=== PATIENT | female | born 1955 | race Two or more races ===

== ENCOUNTER → 2021-07-11 | Outpatient (CLI) | payer MEDICARE, MEDICAID ==
[~2021-07-11] VITALS: Ht 162.6 cm; Wt 142.0 kg
[~2021-07-11] MED LIST: ADENOSINE 119 MG in GIVE UN-DILUTED 0 ML IV ONE
[2021-07-11 10:51] VITALS: BP 134/82
== END | disposition home or self-care (01) ==
LOC: XY 09:22
PROVIDERS: ATTEND Internal Medicine
DX: I11.0 Hypertensive heart disease with heart failure (principal); I50.42 Chronic combined systolic (congestive) and diastolic (congestive) heart failure; I25.10 Atherosclerotic heart disease of native coronary artery without angina pectoris; E11.40 Type 2 diabetes mellitus with diabetic neuropathy, unspecified; R60.0 Localized edema; E78.5 Hyperlipidemia, unspecified; Z79.4 Long term (current) use of insulin; Z87.09 Personal history of other diseases of the respiratory system; Z95.5 Presence of coronary angioplasty implant and graft
CPT/HCPCS: 78452; 93017; A9500; J0153

== ENCOUNTER 2021-10-14 13:28 | Inpatient (IN) | payer MEDICARE, MEDICAID ==
[~2021-10-14] VITALS: Ht 162.6 cm; Wt 146.1 kg
[2021-10-14] MEDS ORDERED: NITROGLYCERIN 0.4 MG SL TAB SL ONE (13:30)
[2021-10-14 14:30] LABS: White Blood Cell 12.1 10^3/uL (4.4-10.8)
[2021-10-14 14:32] LABS: Hematocrit 35.1 % (36.0-46.0); Hemoglobin 11.8 g/dL (12.2-16.2); Mean Corpuscular Hemoglobin 27.4 pg (28.0-32.0); Mean Corpuscular Hgb Conc. 33.7 g/dL (32.0-36.0); Mean Corpuscular Volume 81.3 fL (80.0-100.0); Red Blood Cells 4.32 10^6/uL (4.0-5.20)
[2021-10-14 14:42] LABS: Basophils % (manual) 0 (0.0-2.0); Blast Cells 0; Promyelocytes % 0; Reactive Lymphocytes 0
[2021-10-14 14:55] LABS: Albumin 2.8 g/dL (3.4-5.0); Calcium 8.9 mg/dL (8.5-10.1); Potassium 4.1 mmol/L (3.5-5.1)
[2021-10-14 14:57] LABS: Bilirubin, Total 0.2 mg/dL (0.2-1.0); Total Protein 6.9 g/dL (6.4-8.2)
[2021-10-14 15:07] LABS: Band Neutrophils % (manual) 13; Eosinophils % (manual) 2 (0-7); Lymphocytes % (manual) 22 (10.0-50.0); Metamyelocytes % 1; Monocytes % (manual) 5 (0-12); Myelocytes % 1
[2021-10-14 15:27] LABS: Urine Amorphous Crystal FEW /hpf (None Seen); Urine Bacteria NONE SEEN /hpf (None Seen); Urine Blood Negative /uL (Negative); Urine Specific Gravity 1.014 (1.001-1.035); Urine WBC 1 /hpf (0 - 5)
[2021-10-14] MEDS ORDERED: NITROGLYCERIN 0.4 MG SL TAB SL PRN (18:30)
[2021-10-14] MEDS ORDERED: DEXTROSE (50%) 50ML SYRG IV PRN (18:30)
[2021-10-14] MEDS ORDERED: hydrALAZINE HCL 20 MG/ML VL IV PRN (18:30)
[2021-10-14] MEDS ORDERED: MORPHINE SULFATE INJ 2 MG/ml SYRG IV PRN ×2 (18:30)
[2021-10-14] MEDS ORDERED: ALBUTEROL SULF 2.5 MG/0.5ML(0.5%) NEB SOLN NEB PRN (18:45)
[2021-10-14 18:59] LABS: Cholesterol 118 mg/dL (< 200)
[2021-10-14 19:01] LABS: HDL Cholesterol 41 mg/dL (40-59); LDL Cholesterol 67 mg/dL (< 100); Triglycerides 100 mg/dL (< 150)
[2021-10-14 19:59] VITALS: BP 168/76
[2021-10-14] MEDS ORDERED: LABETALOL HCL 5 MG/ML 4ML SYRINGE IV ONE (21:45)
[2021-10-14] MEDS: ACCU-CHEK COMFORT CURVE STRIP VI SCH (21:58)
[2021-10-14] MEDS ORDERED: InsuLIN REG 1unit/0.01ml Soln (100units/ml) SC SCH (22:00)
[2021-10-14 23:12] VITALS: BP 155/59
[2021-10-15] VITALS (11 sets, daily range): BP systolic 132–183; BP diastolic 56–83
[2021-10-15] MEDS: ACCU-CHEK COMFORT CURVE STRIP VI SCH ×2 (06:24→11:17)
[2021-10-15] MEDS: InsuLIN REG 1unit/0.01ml Soln (100units/ml) SC SCH ×2 (06:25→11:17)
[2021-10-15 08:07] LABS: Mean Corpuscular Volume 80.7 fL (80.0-100.0); White Blood Cell 11.7 10^3/uL (4.4-10.8)
[2021-10-15 08:11] LABS: Hematocrit 35.9 % (36.0-46.0); Hemoglobin 11.8 g/dL (12.2-16.2); Mean Corpuscular Hemoglobin 26.6 pg (28.0-32.0); Red Blood Cells 4.45 10^6/uL (4.0-5.20); Red Cell Distribution Width 14.9 % (11.8-14.3)
[2021-10-15 08:19] LABS: Basophils % (manual) 0 (0.0-2.0); Blast Cells 0; Metamyelocytes % 0; Myelocytes % 0; Promyelocytes % 0; Reactive Lymphocytes 0
[2021-10-15 08:31] LABS: Albumin 2.9 g/dL (3.4-5.0); Calcium 8.9 mg/dL (8.5-10.1); Potassium 4.1 mmol/L (3.5-5.1)
[2021-10-15 08:35] LABS: BUN/Creatinine Ratio 19.8; Bilirubin, Total 0.4 mg/dL (0.2-1.0); Total Protein 6.9 g/dL (6.4-8.2)
[2021-10-15] MEDS ORDERED: METOCLOPRAMIDE HCL 5MG/ml INJ 2ml VIAL IV ONE (08:45)
[2021-10-15 09:45] LABS: INR 1.05 (0.9-1.15); Partial Thromboplastin Time 24.2 sec (23.6-33.0)
[2021-10-15] MEDS ORDERED: ENOXAPARIN SOD 40 MG/0.4 ML SYRINGE SC SCH (10:00)
[2021-10-15] MEDS ORDERED: FUROSEMIDE 100 MG/10ML VIAL IV SCH (10:00)
[2021-10-15] MEDS ORDERED: IODIXANOL 320MG/ML 100ML BTL IV ONE (11:17)
[2021-10-15] MEDS ORDERED: LIDOCAINE 2%HCL (LOCAL ANESTH.) INJ 10ml MDV ONE (11:17)
[2021-10-15] MEDS ORDERED: HEPARIN SODIUM (PORCINE) 5000 UNITS/ML 1ML VIAL ONE (11:29)
[2021-10-15] MEDS ORDERED: ANGIOMAX 250 MG VIAL IV ONE (11:29)
[2021-10-15] MEDS ORDERED: SODIUM CHL 0.9% 0 ML ONE (11:30)
[2021-10-15] MEDS ORDERED: MIDAZOLAM HCL 2MG/2ML 2ml VIAL (1mg/ml) ONE (11:30)
[2021-10-15] MEDS ORDERED: VERAPAMIL 2.5MG/ML INJ 2ML VIAL IV ONE (11:30)
[2021-10-15] MEDS ORDERED: fentaNYL CITRATE 100 MCG/2 ML VL ONE (11:30)
[2021-10-15] MEDS ORDERED: ACETAMINOPHEN 500 MG TAB PO PRN (12:15)
[2021-10-15] MEDS ORDERED: ENALAPRILAT 1.25 MG/ML-1ML VIAL IV PRN (12:45)
[2021-10-15] MEDS ORDERED: METOPROLOL TARTRATE 25 MG TAB PO ONE (12:45)
[2021-10-15] MEDS ORDERED: BRIM0.2S17 EACHEYE (13:00)
[2021-10-15] MEDS ORDERED: INSU1INJ19 SC ×2 (13:00)
[2021-10-15] MEDS ORDERED: TIMO0.2521 EACHEYE (13:00)
[2021-10-15] MEDS ORDERED: CARV25TA55 PO (13:00)
[2021-10-15] MEDS ORDERED: GABA-339 PO (13:00)
[2021-10-15] MEDS ORDERED: INSU100I43 SC (13:00)
[2021-10-15] MEDS ORDERED: LATA0.0019 EACHEYE (13:00)
[2021-10-15] MEDS ORDERED: OXYB5TAB61 PO (13:00)
[2021-10-15] MEDS ORDERED: DOCU100T15 PO (13:00)
[2021-10-15] MEDS ORDERED: LORA-622 PO (13:00)
[2021-10-15] MEDS ORDERED: ATOR10TA52 PO (13:00)
[2021-10-15 13:13] LABS: Band Neutrophils % (manual) 3; Eosinophils % (manual) 2 (0-7); Lymphocytes % (manual) 22 (10.0-50.0); Monocytes % (manual) 8 (0-12)
[2021-10-15] MEDS ORDERED: SODIUM CHLOR 0.9% PF (SALINE LOCK) 10ML VIAL/SYR IV SCH (14:00)
[2021-10-15] MEDS ORDERED: AMLO-489 PO (14:38)
[2021-10-15] MEDS ORDERED: SEMA4INJ SC (14:38)
[2021-10-15] MEDS ORDERED: DICL1GEL50 TOP (14:38)
[2021-10-15] MEDS ORDERED: DULA0.5I SC (14:38)
[2021-10-15] MEDS ORDERED: KETO2CRE4 TOP (14:38)
[2021-10-15] MEDS ORDERED: TRAM50TA2 PO (14:38)
[2021-10-15] MEDS ORDERED: MECL25TA18 PO (14:38)
[2021-10-15] MEDS ORDERED: METOPROLOL TARTRATE 25 MG TAB PO SCH (22:00)
[2021-10-15] MEDS ORDERED: ATORVASTATIN 20 MG TAB PO SCH (22:00)
[2021-10-16] MEDS ORDERED: FAMOTIDINE 20 MG TAB PO SCH (10:00)
[2021-10-16] MEDS ORDERED: ASPirin 81 mg TAB PO SCH (10:00)
== END 2021-10-15 18:18 | disposition home or self-care (01) | DRG 191 ==
LOC: ER 13:28 → EDBD 13:28 → TELE 18:26 → TELE-WESTW 22:50
PROVIDERS: ADMIT Registered Nurse; ATTEND Internal Medicine
PROC: 4A023N7 Measurement of Cardiac Sampling and Pressure, Left Heart, Percutaneous Approach (ICD-10-PCS; principal; 2021-10-15)
PROC: B211YZZ Fluoroscopy of Multiple Coronary Arteries using Other Contrast (ICD-10-PCS; 2021-10-15)
PROC: B215YZZ Fluoroscopy of Left Heart using Other Contrast (ICD-10-PCS; 2021-10-15)
DX: I25.10 Atherosclerotic heart disease of native coronary artery without angina pectoris (principal); I13.0 Hypertensive heart and chronic kidney disease with heart failure and stage 1 through stage 4 chronic kidney disease, or unspecified chronic kidney disease; E11.22 Type 2 diabetes mellitus with diabetic chronic kidney disease; E88.09 Other disorders of plasma-protein metabolism, not elsewhere classified; Z68.43 Body mass index [BMI] 50.0-59.9, adult; D72.829 Elevated white blood cell count, unspecified; E11.40 Type 2 diabetes mellitus with diabetic neuropathy, unspecified; N18.2 Chronic kidney disease, stage 2 (mild); E11.51 Type 2 diabetes mellitus with diabetic peripheral angiopathy without gangrene; E66.01 Morbid (severe) obesity due to excess calories; E78.5 Hyperlipidemia, unspecified; J45.909 Unspecified asthma, uncomplicated; R26.81 Unsteadiness on feet; R80.9 Proteinuria, unspecified; R81 Glycosuria; I65.22 Occlusion and stenosis of left carotid artery; Z82.49 Family history of ischemic heart disease and other diseases of the circulatory system; Z79.4 Long term (current) use of insulin; Z83.3 Family history of diabetes mellitus; Z85.3 Personal history of malignant neoplasm of breast; Z90.11 Acquired absence of right breast and nipple; Z90.710 Acquired absence of both cervix and uterus; Z91.81 History of falling; I73.9 Peripheral vascular disease, unspecified
CPT/HCPCS: 36415; 71045; 80053; 80061; 81001; 82962; 83036; 83880; 84443; 84484; 85007; 85027; 85379; 85610; 85730; 93005; 93306; 93458; 93886; 93970; 96374; 96375; 99152; G0378; J1815; J2001; J2250; J3490; Q9967

== ENCOUNTER 2023-03-11 09:52 | Inpatient (IN) | payer OTHER, MEDICARE, MEDICAID ==
[~2023-03-11] VITALS: Ht 170.2 cm; Wt 41.6 kg
[~2023-03-11 09:52] MED LIST changes: -ADENOSINE 119 MG in GIVE UN-DILUTED 0 ML IV ONE; +AMLO1TAB22 PO; +ATOR10TA52 PO; +BRIM0.2S17 EACHEYE; +DICL1GEL73 TOP; +DOCU100T15 PO; +DULA0.5I SC; +GABA-339 PO; +INSU100I43 SC; +INSU1INJ19 SC; +KETO2CRE4 TOP; +LATA0.008 EACHEYE; +LORA-622 PO; +MECL1TAB32 PO; +OXYB5TAB10 PO; +SEMA4INJ SC; +TIMO0.2521 EACHEYE; +TRAM50TA2 PO
[2023-03-11] MEDS ORDERED: SODIUM CHLORIDE 0.9% 500 ML IV ONE (10:30)
[2023-03-11 10:44] LABS: Basophils # (auto) 0.1 10 ^3/uL (0-0.2); Basophils % (auto) 0.8 % (0.0-2.0); Eosinophils # (auto) 0.1 10 ^3/uL (0-0.8); Eosinophils % (auto) 1.2 % (0.0-7.0); Hematocrit 40.8 % (36.0-46.0); Hemoglobin 12.8 g/dL (12.2-16.2); Lymphocytes # (auto) 1.9 10 ^3/uL (0.4-5.4); Lymphocytes % (auto) 15.1 % (10.0-50.0); Mean Corpuscular Hemoglobin 26.1 pg (28.0-32.0); Mean Corpuscular Hgb Conc. 31.3 g/dL (32.0-36.0); Mean Corpuscular Volume 83.4 fL (80.0-100.0); Monocytes # (auto) 0.8 10 ^3/uL (0-1.3); Monocytes % (auto) 6.5 % (0.0-12.0); Neutrophils # (auto) 9.5 10 ^3/uL (1.6-8.6); Neutrophils % (auto) 76.4 % (37.0-80.0); Red Blood Cells 4.89 10^6/uL (4.0-5.20); Red Cell Distribution Width 14.9 % (11.8-14.3); White Blood Cell 12.4 10^3/uL (4.4-10.8)
[2023-03-11 10:58] VITALS: PULSE 102; RESP 15; O2SAT 92
[2023-03-11 11:06] LABS: Alanine Aminotransferase 12 U/L (7-40); Albumin 4.1 g/dL (3.2-4.8); Alkaline Phosphatase 145 U/L (46-116); Anion Gap 7 (5-15); Aspartate Aminotransferase 25 U/L (13-40); Blood Urea Nitrogen 20 mg/dL (9-23); Calcium 9.3 mg/dL (8.7-10.4); Carbon Dioxide 26 mmol/L (20-30); Chloride 107 mmol/L (98-107); Glucose 109 mg/dL (74-106); Potassium 3.3 mmol/L (3.5-5.1); Sodium 140 mmol/L (136-145); Total Protein 6.8 g/dL (5.7-8.2)
[2023-03-11] MEDS ORDERED: LORazepam 2MG/ML-1ML VIAL IV ONE ×2 (11:30→20:45)
[2023-03-11 11:55] LABS: Magnesium 1.5 mg/dL (1.6-2.6)
[2023-03-11 12:09] LABS: Bilirubin, Total 0.8 mg/dL (0.2-1.0)
[2023-03-11 12:39] LABS: Urine Bacteria MANY /hpf (None Seen); Urine Blood TRACE /uL (Negative); Urine Clarity HAZY (Clear); Urine Color Yellow (Yellow); Urine Hyaline Cast MOD /lpf (0 - 2); Urine Mucus FEW (None Seen); Urine Protein, UAD 1+ (Negative); Urine Specific Gravity 1.016 (1.001-1.035); Urine Urobilinogen Normal (Negative); Urine WBC 10 /hpf (0 - 5); Urine pH 5.5 (5.0-8.0)
[2023-03-11] MEDS ORDERED: cefTRIAXone 1GM/50ML D5W 50 ML IV ONE (13:45)
[2023-03-11] MEDS ORDERED: diphenhdrAMINE HCL 50 MG/1 ML VL IV ONE (13:45)
[2023-03-11] MEDS ORDERED: CIPR-173 PO (14:31)
[2023-03-11] MEDS: SODIUM CHLORIDE 0.9% 1,000 ML IV SCH (15:30)
[2023-03-11] MEDS ORDERED: ACETAMINOPHEN 325 MG TAB PO PRN (15:30)
[2023-03-11] MEDS: MAGNESIUM SULFATE 1GM/100ML 100 ML IV SCH ×2 (15:30→17:18)
[2023-03-11] MEDS ORDERED: DEXTROSE (50%) 50ML SYRG IV PRN (15:30)
[2023-03-11] MEDS ORDERED: POTASSIUM EFFERVESENT TAB 25 MEQ PO ONE (15:30)
[2023-03-11] MEDS ORDERED: DOCUSATE SODIUM PO PRN (15:45)
[2023-03-11] MEDS ORDERED: MECLIZINE HCL 25 MG TAB PO PRN (15:45)
[2023-03-11] MEDS ORDERED: PATIENTS OWN MEDICATION (Gabapentin 1 TAB) PO PRN (15:45)
[2023-03-11] MEDS ORDERED: DOCUSATE SOD 100 MG CAP PO PRN (16:15)
[2023-03-11] MEDS ORDERED: ALPRAZolam 0.5 MG TAB PO ONE (17:00)
[2023-03-11 17:15] LABS: Triglycerides 149 mg/dL (< 150)
[2023-03-11 17:16] LABS: LDL Cholesterol 74 mg/dL (< 100)
[2023-03-11 17:17] LABS: Cholesterol 136 mg/dL (< 200); HDL Cholesterol 32 mg/dL (40-59)
[2023-03-11] MEDS: ACCU-CHEK COMFORT CURVE STRIP VI SCH ×2 (17:24→22:13)
[2023-03-11] MEDS: InsuLIN REG 1unit/0.01ml Soln (100units/ml) SC SCH ×2 (17:35→22:23)
[2023-03-11 19:30] VITALS: PULSE 112; RESP 26; O2SAT 92
[2023-03-11] MEDS ORDERED: LORazepam 2MG/ML-1ML VIAL ONE (20:47)
[2023-03-11] MEDS: OXYBUTYNIN CHL 5 MG TAB PO SCH (21:45)
[2023-03-11] MEDS: LATANOPROST 0.005 % OPTH(EYE) SOL 2.5ML EACHEYE SCH (21:45)
[2023-03-11] MEDS: BRIMONIDINE 0.2% OPTH Soln 5ml EACHEYE SCH (21:45)
[2023-03-11] MEDS: GABAPENTIN 300 MG CAP PO SCH (21:46)
[2023-03-11] MEDS: ATORVASTATIN 20 MG TAB PO SCH (21:46)
[2023-03-11] MEDS: HYDROcodone-ACET 5/325MG TAB PO PRN (21:47)
[2023-03-11 21:59] LABS: Potassium 3.7 mmol/L (3.5-5.1)
[2023-03-11] MEDS ORDERED: PATIENTS OWN MEDICATION (Timolol Maleate (Timolol Maleate Ophthalmi) 1 DROP) EACHEYE SCH (22:00)
[2023-03-11] MEDS ORDERED: PATIENTS OWN MEDICATION (Atorvastatin Calcium 1 TAB) PO SCH (22:00)
[2023-03-11] MEDS: TIMOLOL MALEATE 0.25 % OPTH SOL 5ML EACHEYE SCH (22:00)
[2023-03-11 22:06] LABS: Magnesium 1.8 mg/dL (1.6-2.6)
[2023-03-11] MEDS ORDERED: TEMAZEPAM 15 MG CAP PO ONE (22:30)
[2023-03-12 04:30] LABS: Basophils # (auto) 0.1 10 ^3/uL (0-0.2); Eosinophils # (auto) 0.4 10 ^3/uL (0-0.8); Monocytes # (auto) 1.3 10 ^3/uL (0-1.3)
[2023-03-12 04:33] LABS: Lymphocytes # (auto) 2.9 10 ^3/uL (0.4-5.4); Lymphocytes % (auto) 21.4 % (10.0-50.0); Mean Corpuscular Hemoglobin 26.9 pg (28.0-32.0); Mean Corpuscular Hgb Conc. 32.5 g/dL (32.0-36.0); Mean Corpuscular Volume 82.7 fL (80.0-100.0); Monocytes % (auto) 9.5 % (0.0-12.0); Neutrophils # (auto) 8.8 10 ^3/uL (1.6-8.6); Neutrophils % (auto) 65.1 % (37.0-80.0); Red Blood Cells 4.48 10^6/uL (4.0-5.20); Red Cell Distribution Width 14.5 % (11.8-14.3); White Blood Cell 13.5 10^3/uL (4.4-10.8)
[2023-03-12 04:45] LABS: Alkaline Phosphatase 129 U/L (46-116); Anion Gap 5 (5-15); Aspartate Aminotransferase 16 U/L (13-40); BUN/Creatinine Ratio 13.1 (10.0-20.0); Blood Urea Nitrogen 13 mg/dL (9-23); Calcium 8.7 mg/dL (8.7-10.4); Carbon Dioxide 28 mmol/L (20-30); Chloride 106 mmol/L (98-107); Potassium 3.6 mmol/L (3.5-5.1); Sodium 139 mmol/L (136-145)
[2023-03-12 04:46] LABS: Albumin 3.5 g/dL (3.2-4.8)
[2023-03-12 04:47] LABS: Bilirubin, Total 0.5 mg/dL (0.2-1.0); Total Protein 6.1 g/dL (5.7-8.2)
[2023-03-12 04:48] LABS: Alanine Aminotransferase 9 U/L (7-40)
[2023-03-12 05:04] LABS: Glucose 163 mg/dL (74-106)
[2023-03-12] MEDS: SODIUM CHLORIDE 0.9% 1,000 ML IV SCH (05:31)
[2023-03-12] MEDS: ACCU-CHEK COMFORT CURVE STRIP VI SCH ×4 (06:13→22:11)
[2023-03-12] MEDS: GABAPENTIN 300 MG CAP PO SCH ×3 (06:32→22:11)
[2023-03-12] MEDS: BRIMONIDINE 0.2% OPTH Soln 5ml EACHEYE SCH ×3 (06:32→22:06)
[2023-03-12] MEDS: InsuLIN REG 1unit/0.01ml Soln (100units/ml) SC SCH ×4 (06:34→22:28)
[2023-03-12 08:00] VITALS: PULSE 94; RESP 19; O2SAT 99
[2023-03-12] MEDS: cefTRIAXone 1GM/50ML D5W 50 ML IV SCH (08:33)
[2023-03-12] MEDS: amLODIPine BESYLATE 5 MG TAB PO SCH (08:34)
[2023-03-12] MEDS: OXYBUTYNIN CHL 5 MG TAB PO SCH ×2 (08:34→22:11)
[2023-03-12] MEDS: ENOXAPARIN SOD 40 MG/0.4 ML SYRINGE SC SCH (08:34)
[2023-03-12] MEDS: TIMOLOL MALEATE 0.25 % OPTH SOL 5ML EACHEYE SCH ×2 (08:35→22:00)
[2023-03-12 20:00] VITALS: PULSE 111; RESP 20; O2SAT 97
[2023-03-12] MEDS ORDERED: LORazepam 2MG/ML-1ML VIAL IV PRN (20:00)
[2023-03-12 20:36] LABS: Folate (Folic Acid) 5.33 ng/mL (>5.38)
[2023-03-12] MEDS: LATANOPROST 0.005 % OPTH(EYE) SOL 2.5ML EACHEYE SCH (22:06)
[2023-03-12] MEDS: ATORVASTATIN 20 MG TAB PO SCH (22:11)
[2023-03-13] MEDS: SODIUM CHLORIDE 0.9% 1,000 ML IV SCH ×3 (00:51→18:43)
[2023-03-13] MEDS: GABAPENTIN 300 MG CAP PO SCH ×3 (06:28→22:21)
[2023-03-13] MEDS: ACCU-CHEK COMFORT CURVE STRIP VI SCH ×4 (06:28→22:23)
[2023-03-13] MEDS: InsuLIN REG 1unit/0.01ml Soln (100units/ml) SC SCH ×4 (06:35→22:55)
[2023-03-13] MEDS: BRIMONIDINE 0.2% OPTH Soln 5ml EACHEYE SCH ×3 (06:35→22:00)
[2023-03-13 08:00] VITALS: PULSE 95; RESP 20; O2SAT 98
[2023-03-13] MEDS: cefTRIAXone 1GM/50ML D5W 50 ML IV SCH (09:31)
[2023-03-13] MEDS: ENOXAPARIN SOD 40 MG/0.4 ML SYRINGE SC SCH (12:05)
[2023-03-13] MEDS: OXYBUTYNIN CHL 5 MG TAB PO SCH ×2 (12:06→22:22)
[2023-03-13] MEDS: amLODIPine BESYLATE 5 MG TAB PO SCH (12:06)
[2023-03-13] MEDS: TIMOLOL MALEATE 0.25 % OPTH SOL 5ML EACHEYE SCH ×2 (12:07→22:00)
[2023-03-13] MEDS ORDERED: VANCOMYCIN PER PHARMACY 0 MG IV SCH (13:15)
[2023-03-13] MEDS: VANCOMYCIN 750mg/250ml 250 ML IV SCH ×2 (14:33→22:53)
[2023-03-13 19:30] VITALS: PULSE 114; RESP 22; O2SAT 98
[2023-03-13] MEDS: HALOPERIDOL LACTATE 5 MG/ML INJ VIAL IM PRN (19:38)
[2023-03-13] MEDS: HYDROcodone-ACET 5/325MG TAB PO PRN (20:56)
[2023-03-13] MEDS ORDERED: MORPHINE SULFATE INJ 2 MG/ml SYRG IV PRN (21:15)
[2023-03-13] MEDS: hydrALAZINE HCL 20 MG/ML VL IV PRN (21:30)
[2023-03-13] MEDS: LATANOPROST 0.005 % OPTH(EYE) SOL 2.5ML EACHEYE SCH (22:00)
[2023-03-13] MEDS: ATORVASTATIN 20 MG TAB PO SCH (22:21)
[2023-03-13] MEDS: LORazepam 2MG/ML-1ML VIAL IV PRN (22:53)
[2023-03-14] VITALS (7 sets, daily range): BP systolic 125–159; BP diastolic 49–69; PULSE 110–122; RESP 16–20; TEMP 97.6–98.4; O2SAT 95–97
[2023-03-14] MEDS: hydrALAZINE HCL 20 MG/ML VL IV PRN ×2 (05:19→15:09)
[2023-03-14] MEDS: BRIMONIDINE 0.2% OPTH Soln 5ml EACHEYE SCH ×2 (05:40→15:00)
[2023-03-14] MEDS: GABAPENTIN 300 MG CAP PO SCH ×2 (05:40→15:01)
[2023-03-14] MEDS: VANCOMYCIN 750mg/250ml 250 ML IV SCH (06:00)
[2023-03-14] MEDS: InsuLIN REG 1unit/0.01ml Soln (100units/ml) SC SCH ×3 (07:02→17:58)
[2023-03-14] MEDS: ACCU-CHEK COMFORT CURVE STRIP VI SCH ×4 (07:03→22:00)
[2023-03-14] MEDS: cefTRIAXone 1GM/50ML D5W 50 ML IV SCH (08:59)
[2023-03-14] MEDS: TIMOLOL MALEATE 0.25 % OPTH SOL 5ML EACHEYE SCH ×2 (10:00→22:00)
[2023-03-14] MEDS: SODIUM CHLORIDE 0.9% 1,000 ML IV SCH ×2 (10:28→23:30)
[2023-03-14] MEDS: OXYBUTYNIN CHL 5 MG TAB PO SCH (10:29)
[2023-03-14] MEDS: amLODIPine BESYLATE 5 MG TAB PO SCH (10:29)
[2023-03-14] MEDS: ENOXAPARIN SOD 40 MG/0.4 ML SYRINGE SC SCH (10:30)
[2023-03-14 12:25] LABS: COVID19 ANTIGEN SOFIA FIA NEGATIVE (NEGATIVE)
[2023-03-14] MEDS: HYDROcodone-ACET 5/325MG TAB PO PRN (15:01)
[2023-03-14] MEDS ORDERED: CYANOCOBALAMIN (B-12) 1000 MCG/1 ML VIAL IM ONE (16:45)
[2023-03-14] MEDS: LORazepam 2MG/ML-1ML VIAL IV PRN (22:38)
[2023-03-15] MEDS: LATANOPROST 0.005 % OPTH(EYE) SOL 2.5ML EACHEYE SCH (00:40)
[2023-03-15] MEDS: ATORVASTATIN 20 MG TAB PO SCH (00:41)
[2023-03-15] MEDS: GABAPENTIN 300 MG CAP PO SCH ×2 (00:41→06:00)
[2023-03-15] MEDS: OXYBUTYNIN CHL 5 MG TAB PO SCH ×2 (00:41→09:36)
[2023-03-15] MEDS: BRIMONIDINE 0.2% OPTH Soln 5ml EACHEYE SCH ×2 (00:41→06:00)
[2023-03-15] MEDS: HALOPERIDOL LACTATE 5 MG/ML INJ VIAL IM PRN (00:42)
[2023-03-15] MEDS: InsuLIN REG 1unit/0.01ml Soln (100units/ml) SC SCH ×2 (00:43→09:02)
[2023-03-15 05:00] VITALS: BP 141/70; PULSE 113; RESP 20; TEMP 98.4; O2SAT 97
[2023-03-15] MEDS: ACCU-CHEK COMFORT CURVE STRIP VI SCH (06:00)
[2023-03-15 09:00] VITALS: BP 145/60; PULSE 116; RESP 20; TEMP 98.4; O2SAT 98
[2023-03-15] MEDS: TIMOLOL MALEATE 0.25 % OPTH SOL 5ML EACHEYE SCH (09:34)
[2023-03-15] MEDS: ENOXAPARIN SOD 40 MG/0.4 ML SYRINGE SC SCH (09:35)
[2023-03-15] MEDS: cefTRIAXone 1GM/50ML D5W 50 ML IV SCH (09:36)
[2023-03-15] MEDS: amLODIPine BESYLATE 5 MG TAB PO SCH (09:36)
[2023-03-15] MEDS ORDERED: CYANOCOBALAMIN 500 MCG TAB PO SCH (10:00)
== END 2023-03-15 11:27 | DRG 872 ==
LOC: EDBD 09:52 → ER 09:52 → OVERFLOW 15:34 → WEST WING 03-14 06:06
PROVIDERS: ADMIT Nurse Practitioner Family; ATTEND Family Medicine
PROC: 05HD33Z Insertion of Infusion Device into Right Cephalic Vein, Percutaneous Approach (ICD-10-PCS; principal; 2023-03-14)
PROC: B54MZZA Ultrasonography of Right Upper Extremity Veins, Guidance (ICD-10-PCS; 2023-03-14)
DX: A41.9 Sepsis, unspecified organism (principal); N30.00 Acute cystitis without hematuria; Z68.41 Body mass index [BMI] 40.0-44.9, adult; M62.81 Muscle weakness (generalized); E66.01 Morbid (severe) obesity due to excess calories; E83.42 Hypomagnesemia; E87.6 Hypokalemia; R29.6 Repeated falls; I10 Essential (primary) hypertension; E78.00 Pure hypercholesterolemia, unspecified; Z20.822 Contact with and (suspected) exposure to COVID-19; F03.C0 Unspecified dementia, severe, without behavioral disturbance, psychotic disturbance, mood disturbance, and anxiety; M54.2 Cervicalgia; R26.9 Unspecified abnormalities of gait and mobility; E11.9 Type 2 diabetes mellitus without complications; G89.29 Other chronic pain; Z81.8 Family history of other mental and behavioral disorders; Z82.49 Family history of ischemic heart disease and other diseases of the circulatory system; Z83.3 Family history of diabetes mellitus; Z90.11 Acquired absence of right breast and nipple; Z90.710 Acquired absence of both cervix and uterus; Z71.3 Dietary counseling and surveillance
CPT/HCPCS: 36415; 70450; 70551; 71045; 80053; 80061; 80202; 81001; 82607; 82746; 82962; 83036; 83735; 84132; 84443; 85025; 87040; 87077; 87086; 87186; 87426; 93005; 96361; 96365; 96375; 97110; 97163; 97530; G0378; J0696; J1815